=== PATIENT | male | born 1945 | race Caucasian/White ===

== ENCOUNTER → 2016-10-15 | Outpatient (REF) | payer MEDICARE, BC ==
[~2016-10-15] MED LIST: AMANTIDINE; ARTANE; REQUIP XL
== END ==
LOC: M LAB REF 12:19
PROVIDERS: ATTEND Otolaryngology
DX: K11.7 Disturbances of salivary secretion (principal)

== ENCOUNTER → 2016-10-15 | Outpatient (CLI) | payer MEDICARE, BC ==
--- NOTE | 2016-10-15 16:58 | REP ---
CT NECK WITHOUT CONTRAST: 10/15/2016. Clinical history: Left facial swelling and pain. Evaluate for sialolithiasis. Technique: Noncontrast imaging with coronal and sagittal reconstructions through the neck and facial region. There are no prior pertinent studies. Findings: The bone windows show mastoids well-aerated and symmetric. The visualized skull base intact. Ring of C1 intact. The spinous processes, lamina, pedicles, facets and transverse processes are without acute finding. 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 The central canal shows only minimal narrowing at C5-6 and C6-7. There is some foraminal encroachment due to multiple factors at those levels. Anterior osteophytes with spondylosis noted from C4-5 through C6-7 greatest at C5-6. No compression deformities. No unilateral jumped or locked facets. The airway is intact from the nasopharynx through the hypopharynx, oropharynx, larynx and subglottic trachea. The epiglottis and its folds intact. The bilateral parotid glands are symmetric and grossly intact without nodule, mass or stone. I do not see a sialolith on either side. There is a slightly larger left than right submandibular gland but also no stone in the gland or along the expected course of its duct. There are some lymph nodes in the left submandibular chain and in the carotid space adjacent to the sternocleidomastoid and jugular vein asymmetrically larger left than right. No other significant anterior or posterior cervical chain nodes. Lung apices clear. Thyroid lobes grossly symmetric. Impression: 1. Cervical spondylosis greatest from C4-5 through C6-7 with anterior and posterior osteophytes and mild central canal stenosis at C5-6 and C6-7.2. There is no CT evidence of a sialolith involving the submandibular or parotid glands and their associated ducts on either side. Signed by Balbir Marrero MD 10/15/2016 05:20 P
== END ==
LOC: M RAD 16:07
PROVIDERS: ATTEND Otolaryngology
DX: M47.812 Spondylosis without myelopathy or radiculopathy, cervical region (principal); M99.71 Connective tissue and disc stenosis of intervertebral foramina of cervical region; K11.7 Disturbances of salivary secretion

== ENCOUNTER 2018-01-13 09:31 | Emergency (ER) | payer MEDICARE, BC ==
[2018-01-13 10:23] LABS: HEMOGLOBIN 14.3 g/dl (13.5-17.5); MEAN CORPUSCULAR HEMOGLOBIN 30.4 pg (27.0-33.0); MEAN CORPUSCULAR HGB CONC 33.3 g/dl (32.0-36.5); MEAN CORPUSCULAR VOLUME 91.5 fl (80.0-96.0); PLATELET COUNT, AUTOMATED 164 10^3/uL (150-450); RED CELL DISTRIBUTION WIDTH 12.8 % (11.5-14.5); WHITE BLOOD COUNT 4.2 10^3/uL (4.0-10.0)
[2018-01-13 10:51] LABS: AMPHETAMINES LEVEL URINE NEGATIVE (NEGATIVE); BARBITURATES URINE NEGATIVE (NEGATIVE); BENZODIAZEPINES URINE NEGATIVE (NEGATIVE); CANNABINOIDS URINE NEGATIVE (NEGATIVE); COCAINE METABOLITE URINE NEGATIVE (NEGATIVE); METHADONE URINE NEGATIVE (NEGATIVE); OPIATES URINE NEGATIVE (NEGATIVE); PHENCYCLIDINE URINE NEGATIVE (NEGATIVE)
[2018-01-13 10:59] LABS: BLOOD UREA NITROGEN 17 MG/DL (7-18); CREATININE FOR GFR 1.38 MG/DL (0.70-1.30); GLUCOSE, FASTING 104 MG/DL (70-100)
[2018-01-13 11:00] LABS: ALBUMIN/GLOBULIN RATIO 1.11 (1.00-1.93); ALKALINE PHOSPHATASE 177 U/L (45-117); ALT/SGPT 10 U/L (12-78); ANION GAP 7 MEQ/L (8-16); AST/SGOT 12 U/L (7-37); BILIRUBIN,DIRECT 0.1 MG/DL (0.0-0.2); BILIRUBIN,TOTAL 0.4 MG/DL (0.2-1.0); CALCIUM LEVEL 8.8 MG/DL (8.8-10.2); CARBON DIOXIDE LEVEL 29 MEQ/L (21-32); CHLORIDE LEVEL 103 MEQ/L (98-107); ETHYL ALCOHOL (ETHANOL) < 0.003 % (0.000-0.010); GLOMERULAR FILTRATION RATE 53.8 (>42); POTASSIUM SERUM 4.6 MEQ/L (3.5-5.1); SALICYLATE LEVEL < 1.7 MG/DL (5.0-30.0); SODIUM LEVEL 139 MEQ/L (136-145); TOTAL PROTEIN 7.6 GM/DL (6.4-8.2)
[2018-01-13 11:06] LABS: ACETAMINOPHEN LEVEL < 2.0 UG/ML (10.0-30.0)
== END 2018-01-13 14:40 | disposition home or self-care (01) ==
LOC: M ED 09:31
DX: F32.9 Major depressive disorder, single episode, unspecified (principal); Z85.46 Personal history of malignant neoplasm of prostate; Z85.828 Personal history of other malignant neoplasm of skin; Z79.82 Long term (current) use of aspirin; Z79.899 Other long term (current) drug therapy; Z91.041 Radiographic dye allergy status
CPT/HCPCS: G0480

== ENCOUNTER 2018-01-24 06:33 | Inpatient (IN) | payer MEDICARE, BC ==
[2018-01-24 08:26] LABS: HEMATOCRIT 42.5 % (42.0-52.0); HEMOGLOBIN 14.3 g/dl (13.5-17.5); MEAN CORPUSCULAR HEMOGLOBIN 30.5 pg (27.0-33.0); MEAN CORPUSCULAR HGB CONC 33.6 g/dl (32.0-36.5); MEAN CORPUSCULAR VOLUME 90.6 fl (80.0-96.0); PLATELET COUNT, AUTOMATED 153 10^3/uL (150-450); RED BLOOD COUNT 4.69 10^6/uL (4.30-6.10); WHITE BLOOD COUNT 3.3 10^3/uL (4.0-10.0)
[2018-01-24 08:57] LABS: AMPHETAMINES LEVEL URINE NEGATIVE (NEGATIVE); BARBITURATES URINE NEGATIVE (NEGATIVE); BENZODIAZEPINES URINE NEGATIVE (NEGATIVE); CANNABINOIDS URINE NEGATIVE (NEGATIVE); COCAINE METABOLITE URINE NEGATIVE (NEGATIVE); METHADONE URINE NEGATIVE (NEGATIVE); OPIATES URINE NEGATIVE (NEGATIVE); PHENCYCLIDINE URINE NEGATIVE (NEGATIVE)
[2018-01-24 09:00] LABS: ALBUMIN 4.1 GM/DL (3.2-5.2); ALBUMIN/GLOBULIN RATIO 1.24 (1.00-1.93); ALKALINE PHOSPHATASE 174 U/L (45-117); ALT/SGPT 9 U/L (12-78); ANION GAP 9 MEQ/L (8-16); AST/SGOT 13 U/L (7-37); BILIRUBIN,DIRECT 0.1 MG/DL (0.0-0.2); BILIRUBIN,TOTAL 0.3 MG/DL (0.2-1.0); BLOOD UREA NITROGEN 12 MG/DL (7-18); CALCIUM LEVEL 8.2 MG/DL (8.8-10.2); CARBON DIOXIDE LEVEL 28 MEQ/L (21-32); CHLORIDE LEVEL 102 MEQ/L (98-107); CREATININE FOR GFR 1.24 MG/DL (0.70-1.30); GLOMERULAR FILTRATION RATE > 60.0 (>42); GLUCOSE, FASTING 92 MG/DL (70-100); POTASSIUM SERUM 4.4 MEQ/L (3.5-5.1); SALICYLATE LEVEL < 1.7 MG/DL (5.0-30.0); SODIUM LEVEL 139 MEQ/L (136-145); TOTAL PROTEIN 7.4 GM/DL (6.4-8.2)
[2018-01-24 09:11] LABS: ACETAMINOPHEN LEVEL < 2.0 UG/ML (10.0-30.0); ETHYL ALCOHOL (ETHANOL) < 0.003 % (0.000-0.010)
[2018-01-24] MEDS ORDERED: MOM 30ML SUSPENSION UDC PO (12:30)
[2018-01-24] MEDS ORDERED: traZODone 50 MG TAB PO (12:30)
[2018-01-24] MEDS ORDERED: MAALOX 30 ML SUSP *UDC PO (12:30)
[2018-01-24] MEDS ORDERED: TAMSULOSIN 0.4 MG CAP PO (17:15)
[2018-01-24] MEDS: carBAMazepine 200 MG TAB PO (18:10)
[2018-01-24] MEDS ORDERED: SINEMET 25-100 MG TAB PO (21:00)
[2018-01-24] MEDS: rOPINIRole 1MG TAB PO (22:58)
[2018-01-24] MEDS: SINEMET 25-100 MG TAB PO (22:59)
[2018-01-24] MEDS: QUEtiapine FUMARATE 25 MG TAB PO (22:59)
[2018-01-24] MEDS: SERTRALINE HCL 50 MG TAB PO (22:59)
[2018-01-25] MEDS: carBAMazepine 200 MG TAB PO ×2 (05:58→17:55)
[2018-01-25] MEDS: rOPINIRole 1MG TAB PO ×4 (05:58→17:55)
[2018-01-25] MEDS: LEVOTHYROXINE 50MCG TABLET (0.05MG) PO (05:58)
[2018-01-25] MEDS: AMANTADINE 100 MG CAP PO ×2 (05:59→13:49)
[2018-01-25] MEDS: SINEMET 25-100 MG TAB PO ×5 (05:59→21:50)
[2018-01-25] MEDS: TOBRAMYCIN 0.3% OPHTH SOLN 5 ML OS ×4 (08:52→21:51)
[2018-01-25] MEDS: prednisoLONE ACET 1% OPHTH SUSP 5ML OS ×4 (08:52→21:51)
[2018-01-25] MEDS: ASPIRIN 81 MG ENTERIC TAB PO (08:53)
[2018-01-25] MEDS: ATORVASTATIN 10 MG TAB PO (08:53)
[2018-01-25] MEDS: PREVNAR 13 VACCINE SYRINGE (CPT CODE:90670) IM (09:02)
[2018-01-25] MEDS ORDERED: LORazepam 1 MG TAB As Ordered (09:56)
[2018-01-25] MEDS: LORazepam 1 MG TAB PO (10:05)
[2018-01-25] MEDS: BENZTROPINE 1 MG TAB PO ×2 (10:05→21:50)
[2018-01-25] MEDS: KETOROLAC 0.4% OS ×2 (17:57→21:51)
[2018-01-25] MEDS: SERTRALINE 100 MG TAB PO (21:50)
[2018-01-25] MEDS: QUEtiapine FUMARATE 50 MG TAB PO (21:50)
[2018-01-26] MEDS: carBAMazepine 200 MG TAB PO ×2 (06:31→17:32)
[2018-01-26] MEDS: LEVOTHYROXINE 50MCG TABLET (0.05MG) PO (06:31)
[2018-01-26] MEDS: AMANTADINE 100 MG CAP PO ×2 (06:33→13:28)
[2018-01-26] MEDS: SINEMET 25-100 MG TAB PO ×5 (06:33→22:09)
[2018-01-26] MEDS: rOPINIRole 1MG TAB PO ×4 (06:33→17:32)
[2018-01-26] MEDS: TOBRAMYCIN 0.3% OPHTH SOLN 5 ML OS ×4 (10:02→22:11)
[2018-01-26] MEDS: ASPIRIN 81 MG ENTERIC TAB PO (10:02)
[2018-01-26] MEDS: prednisoLONE ACET 1% OPHTH SUSP 5ML OS ×4 (10:03→22:11)
[2018-01-26] MEDS: ATORVASTATIN 10 MG TAB PO (10:03)
[2018-01-26] MEDS: KETOROLAC 0.4% OS ×4 (10:03→22:10)
[2018-01-26] MEDS: QUEtiapine FUMARATE 50 MG TAB PO (22:09)
[2018-01-26] MEDS: SERTRALINE 100 MG TAB PO (22:10)
[2018-01-26] MEDS: BENZTROPINE 1 MG TAB PO (22:10)
[2018-01-27] MEDS: SINEMET 25-100 MG TAB PO ×2 (06:11→09:21)
[2018-01-27] MEDS: rOPINIRole 1MG TAB PO ×2 (06:11→09:31)
[2018-01-27] MEDS: LEVOTHYROXINE 50MCG TABLET (0.05MG) PO (06:11)
[2018-01-27] MEDS: AMANTADINE 100 MG CAP PO (06:11)
[2018-01-27] MEDS: carBAMazepine 200 MG TAB PO (06:12)
[2018-01-27] MEDS: ATORVASTATIN 10 MG TAB PO (09:21)
[2018-01-27] MEDS: TOBRAMYCIN 0.3% OPHTH SOLN 5 ML OS (09:21)
[2018-01-27] MEDS: ASPIRIN 81 MG ENTERIC TAB PO (09:21)
[2018-01-27] MEDS: KETOROLAC 0.4% OS (09:21)
[2018-01-27] MEDS: prednisoLONE ACET 1% OPHTH SUSP 5ML OS (09:21)
[2018-01-27] MEDS: ACETAMINOPHEN TAB 650MG DOSE (2X325MG) PO (09:31)
[2018-01-27] MEDS: LORazepam 1 MG TAB PO (09:31)
[2018-01-31] MEDS ORDERED: AMANTADINE 100 MG CAP PO (09:00)
== END 2018-01-27 13:25 | disposition home or self-care (01) | DRG 885 ==
LOC: M ED 06:33 → M PSY 01-26 21:46 → M ED INP 12:26 → M PSY 14:15
DX: F32.3 Major depressive disorder, single episode, severe with psychotic features (principal); G35 Multiple sclerosis; F41.9 Anxiety disorder, unspecified; H26.9 Unspecified cataract; Z91.041 Radiographic dye allergy status; G47.33 Obstructive sleep apnea (adult) (pediatric); E03.9 Hypothyroidism, unspecified; E78.00 Pure hypercholesterolemia, unspecified; M41.9 Scoliosis, unspecified; N52.9 Male erectile dysfunction, unspecified; B35.1 Tinea unguium; Z85.46 Personal history of malignant neoplasm of prostate; Z79.82 Long term (current) use of aspirin; Z79.899 Other long term (current) drug therapy

== ENCOUNTER → 2020-12-19 | Outpatient (REF) | payer MEDICARE, BC, OTHER ==
[~2020-12-19] MED LIST changes: +ACET1TAB55 PO; +AMAN100C18; +AMAN100T PO; +ASPI81TA26 PO; +ASPI81TA86 PO; +ATOR1TAB19; +ATOR1TAB19 PO; +BENZ-52 PO; +CARB1TAB20; +CARB1TAB20 PO; +CARB25TA9 PO; +CARBIDOPA; +CIAL20TA PO; +FLOM0.4C39 PO; +LEVO50TA5; +LEVO50TA5 PO; +NORT10CA2; +PRED1SUS2 OS; +QUET50TA3 PO; +ROPI3TAB3; +ROPI3TAB3 PO; +SERT-138 PO; +SERT-141 PO; +SERT50TA29; +TOBR0.3S OS; +TRAZ1TAB10 PO; +[UNRECOGNIZED DRUG - CODE]; +[UNRECOGNIZED DRUG - CODE] OS
== END ==
LOC: M LAB REF 18:40
PROVIDERS: ATTEND Dermatology
DX: L81.4 Other melanin hyperpigmentation (principal)
CPT/HCPCS: 14000; 88305; G0463